=== PATIENT | male | born 1960 ===

== ENCOUNTER 2023-11-24 15:54 | Inpatient (IN) | payer MEDICARE, OTHER ==
[~2023-11-24] VITALS: Ht 188 cm; Wt 97.5 kg
[2023-11-24] MEDS ORDERED: CHLORDIAZEPOXIDE HCL 25 MG CAPSULE ONE (18:28)
[2023-11-24] MEDS: CHLORDIAZEPOXIDE HCL 25 MG CAPSULE PO ONE (18:29)
[2023-11-25 00:54] LABS: *BLOOD, URINE NEGATIVE (NEGATIVE); *CLARITY,URINE CLEAR (CLEAR); *COLOR,URINE YELLOW (YELLOW); *KETONES,URINE 1+ (NEGATIVE); *PROTEIN,URINE 1+ (NEGATIVE); LEUKOCYTE ESTERASE ,URINE NEGATIVE (NEGATIVE); NITRITE, URINE NEGATIVE (NEGATIVE); UGLUCOSE NEGATIVE (NEGATIVE)
[2023-11-25 00:58] LABS: *BILIRUBIN,URIN 1+ (NEGATIVE)
[2023-11-25 01:44] LABS: BACTERIA,URINE FEW /HPF (NONE SEEN); RBC,URINE 0-3 /HPF (0-3); SQUAMOUS EPITHELIAL CELL,UR FEW /HPF (NONE SEEN); WBC,URINE NONE SEEN /HPF (0-3)
[2023-11-25 01:45] VITALS: BP 173/102; TEMP 98.1; O2SAT 97
[2023-11-25] MEDS ORDERED: MAGNESIUM HYDROXIDE 30 ML LIQUID UDC PO PRN (02:00)
[2023-11-25] MEDS: TEMAZEPAM 7.5 MG CAPSULE PO PRN (02:11)
[2023-11-25] MEDS: ACETAMINOPHEN 325 MG TABLET PO PRN (02:23)
[2023-11-25] MEDS: BLOOD SUGAR DIAGNOSTIC 1 EACH STRIP VI ONE (02:29)
[2023-11-25 03:04] VITALS: BP 194/92; TEMP 98.1; O2SAT 96
[2023-11-25] MEDS: CLONIDINE HCL 0.1 MG TABLET PO PRN (03:27)
[2023-11-25] MEDS: CLONAZEPAM 0.5 MG TABLET PO PRN (03:27)
[2023-11-25] MEDS ORDERED: MELA3CAP2 PO (03:32)
[2023-11-25] MEDS ORDERED: PANT40TA49 PO (03:32)
[2023-11-25] MEDS ORDERED: OLAN5TAB70 PO (03:32)
[2023-11-25] MEDS ORDERED: PARO10TA86 PO (03:32)
[2023-11-25] MEDS ORDERED: RAME8TAB15 PO (03:32)
[2023-11-25] MEDS ORDERED: THIA100T74 PO (03:32)
[2023-11-25] MEDS ORDERED: GABA600T12 PO (03:32)
[2023-11-25] MEDS ORDERED: PNV1TABL72 PO (03:32)
[2023-11-25] MEDS ORDERED: FINA5TAB11 PO (03:32)
[2023-11-25] MEDS ORDERED: NALT380S2 IM (03:32)
[2023-11-25] MEDS ORDERED: LEVE100S PO (03:32)
[2023-11-25] MEDS ORDERED: VARE1TAB PO (03:32)
[2023-11-25] MEDS ORDERED: ACAM333T8 PO (03:32)
[2023-11-25] MEDS ORDERED: ZOLP6.252 PO (03:32)
[2023-11-25] MEDS ORDERED: NICO-780 TD (03:32)
[2023-11-25] MEDS ORDERED: FAMO20TA8 PO (03:32)
[2023-11-25] MEDS ORDERED: SERT100T PO (03:32)
[2023-11-25] MEDS ORDERED: DOCU100T2 PO (03:32)
[2023-11-25] MEDS ORDERED: ATOR40TA PO (03:32)
[2023-11-25] MEDS ORDERED: ALBU8.5H8 IH (03:32)
[2023-11-25 08:11] VITALS: BP 131/87; TEMP 98; O2SAT 98
[2023-11-25] MEDS: NICOTINE 14 MG/24HR PATCH TD SCH (09:01)
[2023-11-25] MEDS ORDERED: ESCITALOPRAM OXALATE 10 MG TABLET NG SCH (10:30)
[2023-11-25] MEDS: MAG HYDROX/AL HYDROX/SIMETH 30 ML LIQUID UDC PO PRN (15:47)
[2023-11-25 16:02] VITALS: BP 127/80; TEMP 98; O2SAT 96
[2023-11-25 19:48] VITALS: BP 125/80; TEMP 98.1; O2SAT 98
[2023-11-25] MEDS: OLANZAPINE 5 MG TABLET PO SCH (20:54)
[2023-11-25] MEDS ORDERED: QUETIAPINE FUMARATE 25 MG TABLET PO SCH (21:00)
[2023-11-26 07:56] VITALS: BP 118/72; TEMP 98; O2SAT 99
[2023-11-26 08:21] LABS: BASOPHILS % (AUTO) 1.2 % (0.0-2.0); EOSINOPHILS # (AUTO) 0.1 K/uL (0.0-0.7); EOSINOPHILS % (AUTO) 3.5 % (0.0-7.0); HEMOGLOBIN 12.9 g/dL (12.5-16.3); LYMPHOCYTES % (AUTO) 26.9 % (20.5-51.5); MEAN CORPUSCULAR HEMOGLOBIN 28.4 uug (23.8-33.4); MEAN CORPUSCULAR HGB CONC 32 g/dL (32.5-36.3); MEAN CORPUSCULAR VOLUME 88.5 fL (73.0-96.2); MONOCYTES # (AUTO) 0.3 K/uL (0.1-1.30); MONOCYTES % (AUTO) 8.5 % (0.0-11.0); NEUTROPHILS # (AUTO) 2.3 K/uL (1.8-8.9); NEUTROPHILS % (AUTO) 59.9 % (38.5-71.5); PLATELET COUNT (AUTO) 141 K/uL (152-348); RED BLOOD CELL COUNT(AUTO) 4.53 MIL/uL (4.06-5.63); RED CELL DISTRIBUTION WIDTH 16.7 % (12.1-16.2); WHITE BLOOD COUNT (AUTO) 3.8 K/uL (3.6-10.2)
[2023-11-26] MEDS: SERTRALINE HCL 50 MG TABLET PO SCH (08:24)
[2023-11-26] MEDS: PAROXETINE HCL 10 MG TABLET PO SCH (08:24)
[2023-11-26 08:30] LABS: DIFFERENTIAL COMMENT 1
[2023-11-26 09:06] LABS: THYROID STIMULATING HORMONE 2.276 mIU/mL (0.358-3.740)
[2023-11-26 09:24] LABS: ALBUMIN 2.9 g/dL (3.4-5.0); BILIRUBIN,TOTAL 0.5 mg/dL (0.2-1.0); CALCIUM 8.5 mg/dL (8.5-10.1); CREATININE 0.8 mg/dL (0.6-1.3); MAGNESIUM 1.9 mg/dL (1.8-2.4); PHOSPHOROUS 3.8 mg/dL (2.5-4.9); POTASSIUM 3.7 mmol/L (3.5-5.1); TOTAL PROTEIN, SERUM 6.1 g/dL (6.4-8.2)
[2023-11-26 15:17] VITALS: BP 139/74; TEMP 98; O2SAT 99
[2023-11-26] MEDS: LORAZEPAM 0.5 MG TABLET PO SCH (17:53)
[2023-11-26] MEDS: HYDROCODONE/APAP 5-325MG TABLET PO PRN (18:02)
[2023-11-26] MEDS ORDERED: ALBUTEROL SULFATE 8 GM HFA.AER.AD IH PRN (18:30)
[2023-11-26] MEDS ORDERED: ALBUTEROL SULFATE 2.5 MG/3 ML NEBU NEB PRN (18:45)
[2023-11-26] MEDS: levETIRAcetam 500 MG/5 ML LIQUID UDC PO SCH (18:52)
[2023-11-26] MEDS: DOCUSATE SODIUM 100 MG CAPSULE PO SCH (18:54)
[2023-11-26 19:51] VITALS: BP 139/86; TEMP 97.9; O2SAT 97
[2023-11-26] MEDS: FINASTERIDE 5 MG TABLET PO SCH (20:55)
[2023-11-26] MEDS: ATORVASTATIN 40 MG TABLET PO SCH (20:55)
[2023-11-26] MEDS: GABAPENTIN 300 MG CAPSULE PO SCH (23:02)
[2023-11-27] MEDS: LORAZEPAM 0.5 MG TABLET PO PRN (00:28)
[2023-11-27] MEDS: PANTOPRAZOLE SODIUM 40 MG TABLET.DR PO SCH (07:33)
[2023-11-27] MEDS: levETIRAcetam 500 MG TABLET PO SCH (08:56)
[2023-11-27 08:57] VITALS: BP 121/85; TEMP 98; O2SAT 98
[2023-11-27] MEDS: THIAMINE HCL 100 MG TABLET PO SCH (08:57)
[2023-11-27] MEDS ORDERED: ACAMPROSATE CALCIUM 666 MG PO SCH (09:00)
[2023-11-27] MEDS ORDERED: Medication Not On Formulary EA (Docusate Sodium 100 MG) PO SCH (09:00)
[2023-11-27 15:17] VITALS: BP 128/92; TEMP 98; O2SAT 96
[2023-11-27 20:05] VITALS: BP 120/96; TEMP 98.1; O2SAT 96
[2023-11-28 07:30] VITALS: BP 121/74; TEMP 98; O2SAT 96
[2023-11-28 15:38] VITALS: BP 136/89; TEMP 98; O2SAT 98
[2023-11-28 20:07] VITALS: BP 128/92; TEMP 97.9; O2SAT 96
[2023-11-29 08:01] VITALS: BP 102/63; TEMP 98.4; O2SAT 98
[2023-11-29 16:34] VITALS: BP 117/81; TEMP 98.3; O2SAT 99
[2023-11-29] MEDS: NITROFURANTOIN/NITROFURAN MAC 100 MG CAPSULE PO SCH (20:26)
[2023-11-29 20:38] VITALS: BP 120/67; TEMP 98; O2SAT 98
[2023-11-30 08:28] VITALS: BP 132/84; TEMP 98.1; O2SAT 98
[2023-11-30 16:26] VITALS: BP 119/93; TEMP 98; O2SAT 98
[2023-11-30 20:16] VITALS: BP 131/78; TEMP 98.1; O2SAT 95
[2023-12-01 08:08] VITALS: BP 110/62; TEMP 98.1; O2SAT 97
[2023-12-01 16:38] VITALS: BP 147/80; TEMP 97.8; O2SAT 97
[2023-12-01] MEDS: OLANZAPINE 5 MG TABLET PO SCH (20:23)
[2023-12-01 21:31] VITALS: BP 133/89; TEMP 97.7; O2SAT 96
[2023-12-02 08:53] VITALS: BP 130/79; TEMP 98; O2SAT 98
[2023-12-02 15:31] VITALS: BP 128/69; TEMP 98; O2SAT 98
[2023-12-02 20:06] VITALS: BP_SYST 96; TEMP 98.1; O2SAT 96
[2023-12-03 08:07] VITALS: BP 116/70; TEMP 98; O2SAT 98
[2023-12-03 15:35] VITALS: BP 132/81; TEMP 98; O2SAT 96
[2023-12-03 20:13] VITALS: BP 118/76; TEMP 98.1; O2SAT 96
[2023-12-04 08:05] VITALS: BP 103/58; TEMP 98; O2SAT 98
[2023-12-04 15:39] VITALS: BP 121/85; TEMP 98; O2SAT 96
[2023-12-04 20:23] VITALS: BP 118/65; TEMP 97.7; O2SAT 96
[2023-12-05 07:58] VITALS: BP 103/58; TEMP 98; O2SAT 98
[2023-12-05 16:09] VITALS: BP 110/48; TEMP 98; O2SAT 94
[2023-12-05 20:00] VITALS: BP 120/81; TEMP 97.7; O2SAT 95
[2023-12-06 08:13] VITALS: BP 131/71; TEMP 98.4; O2SAT 98
[2023-12-06 16:15] VITALS: BP 110/64; TEMP 98.3; O2SAT 98
[2023-12-06 20:00] VITALS: BP 120/63; TEMP 97.8; O2SAT 96
[2023-12-07 08:02] VITALS: BP 98/62; TEMP 98.1; O2SAT 97
[2023-12-07 17:04] VITALS: BP 132/66; TEMP 98; O2SAT 97
[2023-12-07 20:59] VITALS: BP_SYST 119; BP_SYST 133; BP_DIAS 53; BP_DIAS 86; TEMP 98; O2SAT 96
[2023-12-08 08:06] VITALS: BP 118/64; TEMP 98.1; O2SAT 98
[2023-12-08] MEDS: PAROXETINE HCL 20 MG TABLET PO SCH (08:20)
[2023-12-08] MEDS ORDERED: PAROXETINE HCL 10 MG TABLET PO SCH (09:00)
[2023-12-08 16:33] VITALS: BP 129/65; TEMP 98; O2SAT 98
[2023-12-08 20:00] VITALS: BP 116/77; TEMP 97.6; O2SAT 97
[2023-12-09 08:09] VITALS: BP 128/64; TEMP 98; O2SAT 94
[2023-12-09 15:32] VITALS: BP 118/73; TEMP 97.8; O2SAT 94
[2023-12-09 20:00] VITALS: BP 123/76; TEMP 97.7; O2SAT 95
[2023-12-10 09:11] VITALS: BP 121/66; TEMP 98; O2SAT 96
== END 2023-12-10 12:15 | DRG 885 ==
LOC: ER 15:55 → GPS 19:00
PROVIDERS: ADMIT Psychiatry & Neurology Psychiatry; ATTEND Internal Medicine
DX: F33.2 Major depressive disorder, recurrent severe without psychotic features (principal); R45.851 Suicidal ideations; G40.909 Epilepsy, unspecified, not intractable, without status epilepticus; D64.9 Anemia, unspecified; D69.6 Thrombocytopenia, unspecified; E78.5 Hyperlipidemia, unspecified; Z87.891 Personal history of nicotine dependence; Z20.822 Contact with and (suspected) exposure to COVID-19; F41.9 Anxiety disorder, unspecified; J44.9 Chronic obstructive pulmonary disease, unspecified; Z73.6 Limitation of activities due to disability; M25.522 Pain in left elbow; Z91.81 History of falling; F10.20 Alcohol dependence, uncomplicated; F19.10 Other psychoactive substance abuse, uncomplicated
CPT/HCPCS: 36415; 73080; 83735; 84100; 84443; 85025